=== PATIENT | female | born 2000 | race Caucasian/White ===

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

== ENCOUNTER 2020-09-18 17:57 | Emergency (ER) | payer OTHER | END 2020-09-18 18:40 | disposition left against medical advice (07) | LOC: DL.ED 17:57 | DX: Z53.21 Procedure and treatment not carried out due to patient leaving prior to being seen by health care provider (principal) ==

== ENCOUNTER 2021-03-09 20:43 | Emergency (ER) | payer OTHER ==
[2021-03-09 21:13] VITALS: BP 148/94; PULSE 95
[2021-03-09] MEDS ORDERED: Bupivacaine 0.5% 30 ML SDV INJECT ONE (21:14)
[2021-03-09] MEDS ORDERED: Lidocaine 1% 30 ML SDV INJECT ONE (21:15)
[2021-03-09] MEDS ORDERED: Silver Nitrate Applicator Each TOP ONE (21:33)
[2021-03-09] MEDS ORDERED: Silver Nitrate Applicator Each ONE (21:47)
[2021-03-09] MEDS ORDERED: Bacitracin Oint 1 GM U/D Packet ONE (21:56)
[2021-03-09] MEDS ORDERED: Bacitracin Oint 1 GM U/D Packet TOP ONE (21:58)
[2021-03-09] MEDS ORDERED: Cephalexin 500 MG Cap PO ONE (21:59)
--- NOTE | 2021-03-09 22:05 | EDM.PDOC ---
ED HPI GENERAL MEDICAL PROBLEM - General Chief Complaint: Lower Extremity Injury/Pain Stated Complaint: LEFT BIG TOE INGROWN NAIL; SORE RED SWOLLEN Time Seen by Provider: 03/09/21 20:55 Source of Information: Reports: Patient - History of Present Illness INITIAL COMMENTS - FREE TEXT/NARRATIVE: Patient comes emergency department today with complaints of infected ingrown left great toe. This patient is struggled for a very long time with multiple recurrences of ingrown toenails. She has gotten to the point where she has done partial nail plate removal on her own which she has done tonight. She is concerns of the redness to her toe following her attempt at home to remove her toenail. Her tetanus immunizations are up-to-date. No recent falls trauma or injury. Left Toe-Hailux Pain Score (Numeric/FACES): 7 - Related Data Allergies Allergy/AdvReac Type Severity Reaction Status Date / Time amoxicillin trihydrate Allergy Hives Verified 03/09/21 21:10 [From Augmentin] potassium clavulanate Allergy Hives Verified 03/09/21 21:10 [From Augmentin] Home Meds: Home Meds Acetaminophen/Butalbital/Caff [Fioricet 325-50-40 MG] 1 tab PO Q4H PRN 10/09/17 [History] Albuterol Sulfate [Proair Hfa] 2 inh INH Q4H PRN 10/09/17 [History] Ibuprofen 2 tab PO Q6H PRN 10/09/17 [History] Levonorgestrel [Mirena] 1 applic IMPLANT Q30D 10/09/17 [History] Spironolactone [Aldactone] 1 tab PO DAILY 10/09/17 [History] Tretinoin [Retin-A] 1 applic TOP BEDTIME 10/09/17 [History] hydrOXYzine HCl [Atarax] 25 mg PO Q8HR PRN 10/09/17 [History] Past Medical History - Past Health History Medical/Surgical History: Denies Medical/Surgical History Respiratory History: Reports: Asthma Gastrointestinal History: Reports: Other (See Below) Other Gastrointestinal History: Glutein and Lactose Intolerance 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 Neurological History: Reports: Migraines, Other (See Below) Other Neuro History: convulsions at times from migraines Psychiatric History: Reports: Anxiety, Depression - Past Surgical History GI Surgical History: Reports: None Social & Family History - Family History Family Medical History: No Pertinent Family History GI: Reports: Other (See Below) Other GI Family History: Coeliac and Lactose Intolerance - Garndma Neurological: Reports: MS Psychiatric: Reports: Anxiety, Depression Other Psychiatric Family History: Grandma and Aunt - Tobacco Use Tobacco Use Status *Q: Never Tobacco User Second Hand Smoke Exposure: No - Caffeine Use Caffeine Use: Reports: None, Coffee, Energy Drinks, Soda, Tea, Other - Recreational Drug Use Recreational Drug Use: No - Living Situation & Occupation Living situation: Reports: with Family Occupation: Student Review of Systems - Review of Systems Review Of Systems: Comprehensive ROS is negative, except as noted in HPI. ED EXAM, GENERAL - Physical Exam Exam: See Below Exam Limited By: No Limitations General Appearance: Alert, WD/WN, No Apparent Distress Extremities: No: Normal Inspection (Exam isolated to the left great toe. On the lateral aspect of the nail plate she has removed about 20% of the nail all the way down to the cuticle. There is quite a bit of erythema and swelling and purulent discharge along that edge as well. There is no streaks up the foot. The rest unremarkable) ED TRAUMA EXTREMITY PROCEDURES - Additional/Other Procedure(s) Other (Free Text) Procedure(s): Please see course for the partial matrixectomy procedure complete in the ED> Course - Vital Signs Last Recorded V/S: Last Vital Signs Temp 96.9 F 03/09/21 21:12 Pulse 95 03/09/21 21:12 Resp 18 03/09/21 21:12 BP 148/94 H 03/09/21 21:12 Pulse Ox 99 03/09/21 21:12 - Orders/Labs/Meds Meds: Medications Discontinued Medications Generic Name Dose Route Start Last Admin Trade Name Freq PRN Reason Stop Dose Admin Bacitracin Confirm 03/09/21 21:56 03/09/21 21:59 Bacitracin Oint 1 Gm U/D Packet Administered 03/09/21 21:57 1 dose Dose Administration 1 dose .ROUTE .STK-MED ONE Bacitracin 1 dose 03/09/21 21:58 03/09/21 21:59 Bacitracin Oint 1 Gm U/D Packet TOP 03/09/21 21:59 1 dose ONETIME ONE Administration Bupivacaine HCl 30 ml 03/09/21 21:14 03/09/21 21:46 Bupivacaine 0.5% 30 Ml Sdv INJECT 03/09/21 21:15 30 ml ONETIME ONE Administration Cephalexin 500 mg 03/09/21 21:59 03/09/21 22:02 Cephalexin 500 Mg Cap PO 03/09/21 22:00 500 mg ONETIME ONE Administration Lidocaine HCl 30 ml 03/09/21 21:15 03/09/21 21:45 Lidocaine 1% 30 Ml Sdv INJECT 03/09/21 21:16 30 ml ONETIME ONE Administration Silver Nitrate 2 each 03/09/21 21:33 03/09/21 21:45 Silver Nitrate Applicator Each TOP 03/09/21 21:34 2 each ONETIME ONE Administration Silver Nitrate Confirm 03/09/21 21:47 03/09/21 21:49 Silver Nitrate Applicator Each Administered 03/09/21 21:48 2 each Dose Administration 2 each .ROUTE .[facility] ONE - Re-Assessments/Exams Free Text/Narrative Re-Assessment/Exam: 03/09/21 23:13 I discussed with the patient that we should really appropriately remove the rest of the nail as some of it is not been completely removed by herself at home she still has quite a bit of jagged pieces that will continue to cause problems. Verbal consent was obtained. For a partial matrixectomy. The base of the left great toe was cleansed with iodine and allowed to dry the appropriate time period. Then 1% lidocaine without epinephrine and 0.5% bupivacaine without epinephrine was mixed in a 50-50 fashion. The above solution 2 mils was injected medially and laterally at the base of the left great toe with good and anesthesia. I then turned my attention to repairing the partial matrixectomy that the patient had already completed on her own but needed some further repair. I continued and clean up the nail that was left over and broken on the lateral aspect of the toe and made the nail more straight as an incision all the way down into the cuticle. I then removed the parts of the nail that were left. I then used silver nitrate at the base of the cuticle to prevent regrowth of the toenail. Hemostasis was obtained with silver nitrate. Patient tolerated the procedure well CMS was intact. Bacitracin bandage dressing was applied. Keflex 5 mg p.o. I really discussed with this patient that highly important for her to soak her toe for the next week or so at least 4 times a day and keep it dressed with bacitracin and a dressing. Keflex for the next 5 days recheck if anything new or worse. She is understanding this and her questions were answered. Departure - Departure Time of Disposition: 22:00 Disposition: Home, Self-Care 01 Clinical Impression: Cellulitis of toe of left foot, Ingrown toenail of left foot - Discharge Information Instructions: Ingrown Toenail, Cellulitis, Adult, [id number], Pain Medicine Instructions, [id number] Referrals: Zahira Robbins NP [Primary Care Provider] - Forms: ED Department Discharge Additional Instructions: Tylenol and or Ibuprofen as needed for pain. Cephalexin 1 capsule 4 times a day for the next 5 days. RX given to the patient. #20. Soak your foot in warm/hot water with Epsom salt and Cindy dish soap at least 4 times a day until completely healed up. Bacitracin and bandage until healed. Return to the ED if new or worsening symptoms. Thai Zelaya Principal Systems Architect in [place]. Tell him Toney sent you. Sepsis Event Note (ED) - Evaluation Sepsis Screening Result: No Definite Risk - Focused Exam Vital Signs: Vital Signs Temp Pulse Resp BP Pulse Ox 03/09/21 21:12 96.9 F 95 18 148/94 H 99
== END 2021-03-09 22:20 | disposition home or self-care (01) ==
LOC: DL.ED 20:43
DX: L60.0 Ingrowing nail (principal); L03.032 Cellulitis of left toe; J45.909 Unspecified asthma, uncomplicated; Z88.0 Allergy status to penicillin
CPT/HCPCS: 11750; 99283; 99283-25; A9270-GY; J3490

== ENCOUNTER 2022-08-20 08:21 | Emergency (ER) | payer OTHER ==
[2022-08-20] MEDS ORDERED: Sodium Chloride 0.9% 10 ML Syringe FLUSH PRN (08:31)
[2022-08-20] MEDS ORDERED: Sodium Chloride 0.9% 1,000 ML IV ONE (08:44)
[2022-08-20] MEDS ORDERED: Ketorolac 30 MG/ML SDV IVPUSH ONE (08:45)
[2022-08-20] MEDS ORDERED: LORazepam 2 MG/ML SDV IVPUSH ONE (08:45)
[2022-08-20] MEDS ORDERED: Metoclopramide 10 MG/2 ML SDV IVPUSH ONE (08:45)
[2022-08-20 09:02] LABS: ANION GAP 14.6 mEq/L (7-13); CHLORIDE,CL 106 mmol/L (98-107); SODIUM,NA 141 mmol/L (136-145)
[2022-08-20 09:06] LABS: ESTIMATED GFR 90 mL/min (>=60)
[2022-08-20 09:44] VITALS: BP 118/82; PULSE 80
== END 2022-08-20 09:41 | disposition home or self-care (01) ==
LOC: DL.ED 08:21
DX: G43.109 Migraine with aura, not intractable, without status migrainosus (principal); R56.9 Unspecified convulsions; J45.909 Unspecified asthma, uncomplicated; Z88.0 Allergy status to penicillin; Z79.899 Other long term (current) drug therapy
CPT/HCPCS: 36415; 80053; 82550; 84703; 85025; 86140; 96361; 96374; 96375; 99284; J1885; J2060; J2765; J3490; J7030

== ENCOUNTER 2023-02-27 09:25 | Emergency (ER) | payer OTHER ==
[2023-02-27 09:42] VITALS: BP 136/90; PULSE 98
== END 2023-02-27 10:47 | disposition home or self-care (01) ==
LOC: DL.ED 09:25
DX: S46.011A Strain of muscle(s) and tendon(s) of the rotator cuff of right shoulder, initial encounter (principal); J45.909 Unspecified asthma, uncomplicated; Z88.0 Allergy status to penicillin; X50.1XXA Overexertion from prolonged static or awkward postures, initial encounter
CPT/HCPCS: 73030-RT; 99283

== ENCOUNTER 2024-03-27 22:52 | Emergency (ER) | payer OTHER | END 2024-03-28 00:40 | LOC: DL.OBPROC 22:52 → DL.ED 22:52 → DL.OBPROC 03-28 00:40 | DX: Z53.21 Procedure and treatment not carried out due to patient leaving prior to being seen by health care provider (principal) ==

== ENCOUNTER 2024-06-10 11:41 | Observation (INO) | payer OTHER ==
[2024-06-10] MEDS: Lactated Ringers 1,000 ML IV SCH (12:52)
[2024-06-10] MEDS: Acetaminophen 500 MG Tab PO ONE (22:30)
[2024-06-10] MEDS: Labetalol 100 MG Tab PO SCH (22:58)
[2024-06-11 10:03] VITALS: BP 142/85; PULSE 82
== END 2024-06-11 09:39 | disposition home or self-care (01) ==
LOC: DL.OBCHECK 11:41 → DL.OB 12:30
PROVIDERS: ADMIT Family Medicine; ATTEND Family Medicine
DX: O14.03 Mild to moderate pre-eclampsia, third trimester (principal); Z3A.32 32 weeks gestation of pregnancy; O99.343 Other mental disorders complicating pregnancy, third trimester; F32.A Depression, unspecified; F41.9 Anxiety disorder, unspecified; Z79.899 Other long term (current) drug therapy; Z88.0 Allergy status to penicillin; Z88.8 Allergy status to other drugs, medicaments and biological substances
CPT/HCPCS: 59025; 76819; A9270-GY; G0378; J7120

== ENCOUNTER 2024-11-04 11:23 | Emergency (ER) | payer OTHER ==
[2024-11-04] MEDS ORDERED: Sodium Chloride 0.9% 10 ML Syringe FLUSH PRN (11:26)
[2024-11-04] MEDS: Sodium Chloride 0.9% 1,000 ML IV ONE (11:32)
[2024-11-04 11:35] VITALS: BP 136/88; PULSE 87
[2024-11-04 11:37] LABS: BASOPHILS PERCENT AUTO 0.5 % (0.0-1.0); EOSINOPHILS PERCENT AUTO 1.5 % (1.0-3.0); HEMATOCRIT 40.6 % (37.0-47.0); HEMOGLOBIN 13.7 g/dL (12.0-16.0); LYMPHOCYTES PERCENT AUTO 27.1 % (20.5-50.1); MEAN CORPUSCULAR HGB CONC 33.7 g/dL (33.0-35.0); NEUTROPHILS PERCENT AUTO 60.9 % (42.2-75.2); PLATELET COUNT,PLT 287 10^3/uL (150-450); RED BLOOD CELL COUNT 4.72 10^6/uL (4.2-5.4); WHITE BLOOD CELL COUNT,WBC 6.1 10^3/uL (5.0-10.0)
[2024-11-04 11:57] LABS: A/G RATIO 1.1; ALBUMIN 3.8 g/dL (3.4-5.0); ANION GAP 17.6 mEq/L (7-13); BILIRUBIN TOTAL 0.2 mg/dL (0.2-1.0); BUN/CREATININE RATIO 13.6 (No establ ref range); C-REACTIVE PROTEIN 0.77 ng/dL (<=0.50); CALCIUM 9.2 mg/dL (8.5-10.1); CREATININE 0.88 mg/dL (0.55-1.02); EST CRCL DRUG DOSING (CG) 105.68 mL/min; MAGNESIUM 1.9 mg/dL (1.8-2.4); POTASSIUM,K 3.6 mmol/L (3.5-5.1); PROTEIN TOTAL,TP 7.2 g/dL (6.4-8.2)
[2024-11-04 12:01] LABS: LACTIC ACID 1.8 mmol/L (0.4-2.0)
[2024-11-04] MEDS ORDERED: Ketorolac 30 MG/ML SDV ONE (12:03)
[2024-11-04] MEDS: Ketorolac 30 MG/ML SDV IVPUSH ONE (12:05)
[2024-11-04 12:21] LABS: APPEARANCE,URINE CLEAR (CLEAR); BILIRUBIN,URINE NEGATIVE (NEGATIVE); COLOR,URINE YELLOW (YELLOW); GLUCOSE,URINE NEGATIVE (NEGATIVE); KETONES,URINE NEGATIVE (NEGATIVE); LEUKOCYTE ESTERASE,URINE NEGATIVE (NEGATIVE); NITRITE,URINE NEGATIVE (NEGATIVE); OCCULT BLOOD,URINE NEGATIVE (NEGATIVE); PH,URINE 5.5 (5.0-9.0); PROTEIN,URINE NEGATIVE (NEGATIVE); UROBILINOGEN,URINE 0.2 mg/dL (0.2-1.0)
== END 2024-11-04 12:40 | disposition home or self-care (01) ==
LOC: DL.ED 11:23
DX: G40.909 Epilepsy, unspecified, not intractable, without status epilepticus (principal); Z88.0 Allergy status to penicillin; Z88.8 Allergy status to other drugs, medicaments and biological substances; Z79.899 Other long term (current) drug therapy
CPT/HCPCS: 36415; 80053; 81003; 81025; 83605; 83735; 85025; 86140; 96374; 99284; 99284-25; J1885; J7030

== ENCOUNTER 2024-11-22 08:24 | Emergency (ER) | payer SELFPAY ==
[2024-11-22] MEDS: Metoclopramide 10 MG/2 ML SDV IVPUSH ONE (09:04)
[2024-11-22] MEDS: diphenhydrAMINE 50 MG/ML SDV IVPUSH ONE (09:04)
[2024-11-22] MEDS: Sodium Chloride 0.9% 1,000 ML IV SCH (09:04)
[2024-11-22] MEDS: Ketorolac 30 MG/ML SDV IVPUSH ONE (09:04)
[2024-11-22 10:17] VITALS: BP 101/64; PULSE 52
== END 2024-11-22 10:50 | disposition home or self-care (01) ==
LOC: DL.ED 08:24
DX: G43.109 Migraine with aura, not intractable, without status migrainosus (principal); J45.909 Unspecified asthma, uncomplicated; E66.9 Obesity, unspecified; Z88.1 Allergy status to other antibiotic agents; Z88.8 Allergy status to other drugs, medicaments and biological substances; Z79.899 Other long term (current) drug therapy
CPT/HCPCS: 96361; 96374; 96375; 99283; J1200; J1885; J2765; J3360; J7030

== ENCOUNTER 2024-11-29 18:41 | Emergency (ER) | payer OTHER ==
[2024-11-29] MEDS: Lidocaine 2% 20 ML MDV ONE (19:07)
[2024-11-29] MEDS: Ketorolac 30 MG/ML SDV IM ONE (19:14)
[2024-11-29 19:32] VITALS: BP 129/87; PULSE 87
== END 2024-11-29 19:30 | disposition home or self-care (01) ==
LOC: DL.ED 18:41
DX: G43.109 Migraine with aura, not intractable, without status migrainosus (principal); J45.909 Unspecified asthma, uncomplicated; E66.9 Obesity, unspecified; Z88.1 Allergy status to other antibiotic agents; Z88.8 Allergy status to other drugs, medicaments and biological substances; Z79.899 Other long term (current) drug therapy; Z68.33 Body mass index [BMI] 33.0-33.9, adult
CPT/HCPCS: 96372; 99283; 99284; J1885; J3490

== ENCOUNTER 2024-11-30 04:36 | Emergency (ER) | payer OTHER ==
[2024-11-30] MEDS: LORazepam 2 MG/ML SDV IVPUSH ONE (05:24)
[2024-11-30] MEDS: diphenhydrAMINE 50 MG/ML SDV IV ONE (05:25)
[2024-11-30] MEDS: Ketorolac 30 MG/ML SDV IVPUSH ONE (05:25)
[2024-11-30] MEDS: Metoclopramide 10 MG/2 ML SDV IVPUSH ONE (05:25)
[2024-11-30] MEDS: Lactated Ringers 1,000 ML IV ONE (05:27)
[2024-11-30 06:05] VITALS: BP 115/79; PULSE 56
== END 2024-11-30 06:18 | disposition home or self-care (01) ==
LOC: DL.ED 04:36
DX: G40.909 Epilepsy, unspecified, not intractable, without status epilepticus (principal); Z88.0 Allergy status to penicillin; Z88.8 Allergy status to other drugs, medicaments and biological substances; Z79.899 Other long term (current) drug therapy
CPT/HCPCS: 96374; 96375; 99283; J1200; J1885; J2060; J2765; J7120

== ENCOUNTER 2025-03-11 16:12 | Emergency (ER) | payer OTHER ==
[2025-03-11] MEDS: SUMAtriptan 6 MG/0.5 ML SDV SUBCUT ONE (16:55)
[2025-03-11] MEDS: Lidocaine 2% 20 ML MDV ONE (16:57)
[2025-03-11] MEDS ORDERED: Sodium Chloride 0.9% 10 ML Syringe FLUSH PRN (17:45)
[2025-03-11 17:57] LABS: BASOPHILS PERCENT AUTO 0.5 % (0.0-1.0); EOSINOPHILS PERCENT AUTO 1.4 % (1.0-3.0); HEMATOCRIT 37.7 % (37.0-47.0); LYMPHOCYTES PERCENT AUTO 27.4 % (20.5-50.1); MEAN CORPUSCULAR HEMOGLOBIN 31.3 pg (27.0-34.0); MEAN CORPUSCULAR HGB CONC 34.5 g/dL (33.0-35.0); MEAN CORPUSCULAR VOLUME 90.6 fL (80-100); MONOCYTES PERCENT AUTO 8.5 % (2-8); NEUTROPHILS PERCENT AUTO 62.2 % (42.2-75.2); PLATELET COUNT,PLT 283 10^3/uL (150-450); RED BLOOD CELL COUNT 4.16 10^6/uL (4.2-5.4); WHITE BLOOD CELL COUNT,WBC 8.9 10^3/uL (5.0-10.0)
[2025-03-11] MEDS: Ketorolac 30 MG/ML SDV IVPUSH ONE (18:01)
[2025-03-11] MEDS: Sodium Chloride 0.9% 1,000 ML IV ONE (18:02)
[2025-03-11] MEDS: diphenhydrAMINE 50 MG/ML SDV IVPUSH ONE (18:02)
[2025-03-11] MEDS: Magnesium Sulfate 2 GM/50 mL 2 GM in Premix Bag 1 BAG IV ONE (18:08)
[2025-03-11 18:11] LABS: ANION GAP 9.8 mEq/L (7-13); CALCIUM 9.5 mg/dL (8.5-10.1); CREATININE 0.96 mg/dL (0.55-1.02); EST CRCL DRUG DOSING (CG) 90.37 mL/min; POTASSIUM,K 3.8 mmol/L (3.5-5.1)
[2025-03-11 18:51] VITALS: BP 118/77; PULSE 59
== END 2025-03-11 18:52 | disposition home or self-care (01) ==
LOC: DL.ED 16:12
DX: G43.109 Migraine with aura, not intractable, without status migrainosus (principal); J45.909 Unspecified asthma, uncomplicated; E66.9 Obesity, unspecified; Z88.8 Allergy status to other drugs, medicaments and biological substances; Z88.1 Allergy status to other antibiotic agents; Z79.899 Other long term (current) drug therapy; Z68.34 Body mass index [BMI] 34.0-34.9, adult
CPT/HCPCS: 36415; 64450; 80048; 83735; 85025; 96365; 96372; 96375; 99283; J1200; J1885; J2003; J3030; J3475; J7030

== ENCOUNTER 2025-04-15 02:44 | Emergency (ER) | payer OTHER ==
[2025-04-15 03:02] VITALS: BP 137/83; PULSE 78
[2025-04-15] MEDS: Cefdinir 300 MG Cap PO ONE (03:13)
== END 2025-04-15 03:21 | disposition home or self-care (01) ==
LOC: DL.ED 02:44
DX: H66.001 Acute suppurative otitis media without spontaneous rupture of ear drum, right ear (principal); J45.909 Unspecified asthma, uncomplicated; E66.9 Obesity, unspecified; Z88.1 Allergy status to other antibiotic agents; Z88.8 Allergy status to other drugs, medicaments and biological substances; Z79.899 Other long term (current) drug therapy; Z68.32 Body mass index [BMI] 32.0-32.9, adult
CPT/HCPCS: 99282; A9270